=== PATIENT | male | born 1985 ===

== ENCOUNTER 2021-08-15 00:09 | Outpatient (CLI) | payer SELFPAY | END 2021-08-15 00:10 | disposition left against medical advice (07) | LOC: EMS 00:09 | DX: R07.9 Chest pain, unspecified (principal); R10.13 Epigastric pain; R20.0 Anesthesia of skin; M79.601 Pain in right arm ==

== ENCOUNTER 2022-07-08 08:00 | Outpatient (CLI) | payer OTHER ==
[2022-07-09 04:39] LABS: CHLAMYDIA TRACHOMATIS DNA NEGATIVE (NEGATIVE); NEISSERIA GONORRHOEAE DNA NEGATIVE (NEGATIVE); TRICHOMONAS VAGINALIS DNA NEGATIVE (NEGATIVE)
== END 2022-07-08 23:59 | disposition home or self-care (01) ==
LOC: LAB.N 08:00
PROVIDERS: ATTEND Family Medicine
DX: Z11.3 Encounter for screening for infections with a predominantly sexual mode of transmission (principal)
CPT/HCPCS: 87491; 87591; 87661